=== PATIENT | female | born 1995 | race Caucasian/White ===

== ENCOUNTER 2017-01-12 21:46 | Emergency (ER) | payer BC ==
[~2017-01-12] VITALS: Ht 165.1 cm; Wt 95.8 kg
[~2017-01-12 21:46] MED LIST: BYSTOLIC5 MG PO; ESCITALOPRAM OX10 MG PO; LOESTRIN 241 TABLET; OMEPRAZOLE40 M1 PO
[2017-01-13 00:08] LABS: HEMATOCRIT 38.4 % (36.0-46.0); MCH 26.8 PG (29.0-34.0); MCV 83.7 FL (83-99); MEAN PLAT.VOLUME 9.3 uM^3 (9.5-12.4); PLATELET COUNT 309 K/uL (156-360); RBC DIS.WIDTH-CV 13.6 % (11.8-14.6); RBC DIS.WIDTH-SD 42.1 % (39-53); RED BLOOD COUNT 4.59 M/uL (3.80-5.20); WHITE BLOOD COUNT 8.2 K/uL (4.1-10.2)
[2017-01-13 00:21] LABS: CHLORIDE 106 mEq/L (99-109); POTASSIUM 3.8 mEq/L (3.7-5.4); SODIUM 142 mEq/L (136-147)
[2017-01-13 00:23] LABS: GLUCOSE 98 mg/dL (70-99)
[2017-01-13 00:25] LABS: ANION GAP 13 MEQ/L (2-14); TOTAL BILIRUBIN 0.4 mg/dL (0.0-1.0)
[2017-01-13 00:27] LABS: ALKALINE PHOSPHATASE 58 IU/L (3-129); GFR ESTIMATE (CALCULATED) > 59 mL/min/
[2017-01-13 00:28] LABS: UREA NITROGEN (BUN) 9 mg/dL (9-23)
[2017-01-13 00:30] LABS: ADD MIUA? YES; BILIRUBIN NEGATIVE; BLOOD NEGATIVE; COLOR AMBER ((YELLOW)); GLUCOSE (STRIP) NEGATIVE; KETONES 5; LEUKOCYTES TRACE; NITRITE NEGATIVE; PROTEIN (STRIP) 30; SPECIFIC GRAVITY 1.032 (1.000-1.030); UROBILINOGEN 0.2 MG/DL (0.2-1.0)
[2017-01-13 00:30] LABS: LIPASE 36 U/L (1.0-51.0)
[2017-01-13 00:40] LABS: QUANTITATIVE HCG < 4.0 MIU/ML
[2017-01-13 00:48] LABS: BACTERIA RARE /HPF; CALCIUM OXALATE CRYSTALS 1+ /HPF; EPITHELIAL CELLS 1+ /HPF; HYALINE CASTS 0-5 /LPF; MUCUS 2+ /LPF; RED BLOOD CELLS 0-5 /HPF (0-5); UCUL ADDED? NO; WHITE BLOOD CELLS 0-5 /HPF (0-5)
[2017-01-13 01:33] VITALS: BP 137/77
== END 2017-01-13 01:34 | disposition home or self-care (01) ==
LOC: EME 21:46
PROVIDERS: Physician Assistant
DX: R10.11 Right upper quadrant pain (principal); R14.0 Abdominal distension (gaseous); I10 Essential (primary) hypertension
CPT/HCPCS: 76705; 80053; 81003; 83690; 84702; 85027; 99281; 99284

== ENCOUNTER 2017-03-16 10:09 | Emergency (ER) | payer BC ==
[~2017-03-16] VITALS: Ht 167.6 cm; Wt 94.7 kg
[2017-03-16 11:07] LABS: HEMATOCRIT 35.6 % (36.0-46.0); MCH 28.2 PG (29.0-34.0); MCHC 33.7 G/DL (30.0-36.0); MCV 83.8 FL (83-99); MEAN PLAT.VOLUME 9.1 uM^3 (9.5-12.4); PLATELET COUNT 333 K/uL (156-360); RBC DIS.WIDTH-CV 13.3 % (11.8-14.6); RBC DIS.WIDTH-SD 40.9 % (39-53); RED BLOOD COUNT 4.25 M/uL (3.80-5.20); WHITE BLOOD COUNT 9.9 K/uL (4.1-10.2)
[2017-03-16] MEDS ORDERED: LABETALOL HCL100 MG PO (13:32)
[2017-03-16] MEDS ORDERED: ESTRACE0.5 MG PO (13:33)
[2017-03-16] MEDS ORDERED: CRINONE1.45 GM VG (13:34)
[2017-03-16 14:12] LABS: ADD MIUA? YES; BILIRUBIN NEGATIVE; BLOOD LARGE; COLOR YELLOW ((YELLOW)); GLUCOSE (STRIP) NEGATIVE; KETONES 80; LEUKOCYTES NEGATIVE; NITRITE NEGATIVE; PROTEIN (STRIP) NEGATIVE; SPECIFIC GRAVITY 1.013 (1.000-1.030); UROBILINOGEN 0.2 MG/DL (0.2-1.0)
[2017-03-16 14:21] LABS: BACTERIA NONE SEEN /HPF; EPITHELIAL CELLS 1+ /HPF; MUCUS TRACE /LPF; RED BLOOD CELLS TNTC /HPF (0-5); UCUL ADDED? NO; WHITE BLOOD CELLS 0-5 /HPF (0-5)
[2017-03-16 14:37] VITALS: BP 145/104
== END 2017-03-16 14:38 | disposition home or self-care (01) ==
LOC: EME 10:09 → EXP 10:09
DX: O20.8 Other hemorrhage in early pregnancy (principal); O34.81 Maternal care for other abnormalities of pelvic organs, first trimester; N83.201 Unspecified ovarian cyst, right side; O16.1 Unspecified maternal hypertension, first trimester; O99.281 Endocrine, nutritional and metabolic diseases complicating pregnancy, first trimester; E78.5 Hyperlipidemia, unspecified; O99.611 Diseases of the digestive system complicating pregnancy, first trimester; K21.9 Gastro-esophageal reflux disease without esophagitis; O99.341 Other mental disorders complicating pregnancy, first trimester; F32.9 Major depressive disorder, single episode, unspecified; F41.9 Anxiety disorder, unspecified; O36.8910 Maternal care for other specified fetal problems, first trimester, not applicable or unspecified; Z3A.09 9 weeks gestation of pregnancy
CPT/HCPCS: 76801; 81003; 84702; 85027; 99281; 99283

== ENCOUNTER 2017-06-03 05:17 | Emergency (ER) | payer OTHER, BC ==
[~2017-06-03] VITALS: Ht 165.1 cm; Wt 96.2 kg
[~2017-06-03 05:17] MED LIST changes: +CRINONE1.45 GM VG; +ESTRACE0.5 MG PO; +LABETALOL HCL100 MG PO
[2017-06-03 05:18] VITALS: BP 142/97
== END 2017-06-03 07:14 | disposition home or self-care (01) ==
LOC: EME 05:17
DX: O9A.212 Injury, poisoning and certain other consequences of external causes complicating pregnancy, second trimester (principal); S61.032A Puncture wound without foreign body of left thumb without damage to nail, initial encounter; W46.0XXA Contact with hypodermic needle, initial encounter; Y99.0 Civilian activity done for income or pay; Y92.239 Unspecified place in hospital as the place of occurrence of the external cause; Z3A.21 21 weeks gestation of pregnancy; O16.2 Unspecified maternal hypertension, second trimester; O99.282 Endocrine, nutritional and metabolic diseases complicating pregnancy, second trimester; E78.5 Hyperlipidemia, unspecified; Z91.040 Latex allergy status
CPT/HCPCS: 99281; 99283

== ENCOUNTER 2017-07-06 11:34 | Emergency (ER) | payer BC ==
[~2017-07-06] VITALS: Ht 167.6 cm; Wt 99.5 kg
[2017-07-06 12:24] LABS: EOSINOPHIL (%) 0.6 % (0-5); EOSINOPHIL COUNT 0.1 K/uL (0-0.3); HEMATOCRIT 34.5 % (36.0-46.0); IMMATURE GRANULOCYTE (%) 0.5 % (0.0-0.7); IMMATURE GRANULOCYTE COUNT 0.1 K/uL; INSTRUMENT ABS NEUTROPHIL CT 11.4 K/uL; LYMPHOCYTE COUNT 2.1 K/uL (1.0-2.8); MCH 28.9 PG (29.0-34.0); MCHC 33.6 G/DL (30.0-36.0); MCV 85.8 FL (83-99); MEAN PLAT.VOLUME 9.2 uM^3 (9.5-12.4); MONOCYTE (%) 4.6 % (3-12); MONOCYTE COUNT 0.7 K/uL (0-0.8); NEUTROPHIL (%) 79.7 % (45-76); NEUTROPHIL COUNT 11.4 K/uL (1.8-6.4); PLATELET COUNT 303 K/uL (156-360); RBC DIS.WIDTH-CV 13.2 % (11.8-14.6); RBC DIS.WIDTH-SD 41.4 % (39-53); RED BLOOD COUNT 4.02 M/uL (3.80-5.20); WHITE BLOOD COUNT 14.3 K/uL (4.1-10.2)
[2017-07-06 12:36] LABS: CHLORIDE 104 mEq/L (99-109); POTASSIUM 3.7 mEq/L (3.7-5.4); SODIUM 136 mEq/L (136-147)
[2017-07-06 12:39] LABS: GLUCOSE 98 mg/dL (70-99)
[2017-07-06 12:40] LABS: ANION GAP 12 MEQ/L (2-14)
[2017-07-06 12:41] LABS: TOTAL BILIRUBIN 0.3 mg/dL (0.0-1.0)
[2017-07-06 12:42] LABS: ALKALINE PHOSPHATASE 71 IU/L (3-129); GFR ESTIMATE (CALCULATED) > 59 mL/min/
[2017-07-06 12:43] LABS: UREA NITROGEN (BUN) 8 mg/dL (9-23)
[2017-07-06 12:51] LABS: QUANTITATIVE HCG 8150.1 MIU/ML
[2017-07-06 14:49] LABS: ADD MIUA? YES; BILIRUBIN NEGATIVE; BLOOD NEGATIVE; COLOR YELLOW ((YELLOW)); GLUCOSE (STRIP) NEGATIVE; KETONES 5; LEUKOCYTES NEGATIVE; NITRITE NEGATIVE; PROTEIN (STRIP) NEGATIVE; SPECIFIC GRAVITY 1.011 (1.000-1.030); UROBILINOGEN 0.2 MG/DL (0.2-1.0)
[2017-07-06 14:58] LABS: BACTERIA RARE /HPF; EPITHELIAL CELLS 1+ /HPF; HYALINE CASTS 0-5 /LPF; MUCUS TRACE /LPF; RED BLOOD CELLS 0-5 /HPF (0-5); WHITE BLOOD CELLS 0-5 /HPF (0-5)
[2017-07-06 15:15] VITALS: BP 111/68
== END 2017-07-06 15:23 | disposition home or self-care (01) ==
LOC: EME 11:34
PROVIDERS: Emergency Medicine
DX: O26.892 Other specified pregnancy related conditions, second trimester (principal); R42 Dizziness and giddiness; O10.912 Unspecified pre-existing hypertension complicating pregnancy, second trimester; R00.0 Tachycardia, unspecified; Z3A.26 26 weeks gestation of pregnancy
CPT/HCPCS: 80053; 81003; 84702; 85025; 93005; 99281; 99285

== ENCOUNTER 2017-08-29 14:32 | Outpatient (CLI) | payer BC ==
[2017-08-29 14:45] VITALS: BP 130/78
[2017-08-29 15:19] LABS: BASOPHIL (%) 0.3 % (0-1); EOSINOPHIL (%) 0.8 % (0-5); EOSINOPHIL COUNT 0.1 K/uL (0-0.3); HEMATOCRIT 33.7 % (36.0-46.0); HEMOGLOBIN 11.4 G/DL (11.9-15.5); IMMATURE GRANULOCYTE (%) 0.7 % (0.0-0.7); LYMPHOCYTE (%) 20.5 % (15-42); LYMPHOCYTE COUNT 2.1 K/uL (1.0-2.8); MCH 29.2 PG (29.0-34.0); MCHC 33.8 G/DL (30.0-36.0); MCV 86.2 FL (83-99); MONOCYTE (%) 8.9 % (3-12); MONOCYTE COUNT 0.9 K/uL (0-0.8); NEUTROPHIL (%) 68.8 % (45-76); PLATELET COUNT 269 K/uL (156-360); RBC DIS.WIDTH-SD 43.1 % (39-53); RED BLOOD COUNT 3.91 M/uL (3.80-5.20); WHITE BLOOD COUNT 10.2 K/uL (4.1-10.2)
[2017-08-29 15:20] VITALS: BP 130/68
[2017-08-29 15:37] LABS: ALBUMIN 3.5 G/DL (3.2-4.8); CHLORIDE 106 MEQ/L (99-109); POTASSIUM 3.7 MEQ/L (3.7-5.4); SODIUM 138 MEQ/L (136-147); TOTAL BILIRUBIN 0.2 MG/DL (0.0-1.0)
[2017-08-29 15:43] LABS: ALKALINE PHOSPHATASE 68 IU/L (3-129); ALT (GPT) 8 IU/L (3-49); AST (GOT) 9 IU/L (2-34); CREATININE 0.4 MG/DL (0.6-1.3); GFR ESTIMATE (CALCULATED) > 59 mL/min/; GLUCOSE 93 mg/dL (70-99); TOTAL PROTEIN 6.5 G/DL (6.4-8.3); UREA NITROGEN (BUN) 6 mg/dL (9-23); URIC ACID 3.9 mg/dL (3.1-9.2)
[2017-08-29 15:44] VITALS: BP 140/75
[2017-08-29] MEDS ORDERED: OMEPRAZOLE40 M1 PO (16:01)
[2017-08-29 17:00] LABS: UR CREATININE CONCENTRATION 173.1 MG/DL
== END 2017-08-29 17:25 | disposition home or self-care (01) ==
LOC: LDRP-OP 14:32 → 2WEST 14:34 → LDRP-OP 11-11 14:40
PROVIDERS: Nurse Practitioner
DX: O10.913 Unspecified pre-existing hypertension complicating pregnancy, third trimester (principal); Z3A.00 Weeks of gestation of pregnancy not specified
CPT/HCPCS: 59025; 80053; 82570; 84156; 84550; 85025; G0378

== ENCOUNTER 2017-08-31 15:41 | Outpatient (CLI) | payer BC ==
[2017-08-31] VITALS (9 sets, daily range): BP systolic 138–158; BP diastolic 78–90
[2017-08-31 16:52] LABS: BASOPHIL (%) 0.2 % (0-1); EOSINOPHIL (%) 0.6 % (0-5); EOSINOPHIL COUNT 0.1 K/uL (0-0.3); HEMATOCRIT 33.6 % (36.0-46.0); HEMOGLOBIN 11.2 G/DL (11.9-15.5); IMMATURE GRANULOCYTE (%) 0.7 % (0.0-0.7); LYMPHOCYTE (%) 17.9 % (15-42); LYMPHOCYTE COUNT 2.2 K/uL (1.0-2.8); MCH 28.9 PG (29.0-34.0); MCHC 33.3 G/DL (30.0-36.0); MCV 86.8 FL (83-99); MONOCYTE (%) 6.3 % (3-12); MONOCYTE COUNT 0.8 K/uL (0-0.8); NEUTROPHIL (%) 74.3 % (45-76); PLATELET COUNT 262 K/uL (156-360); RBC DIS.WIDTH-SD 43.5 % (39-53); RED BLOOD COUNT 3.87 M/uL (3.80-5.20); WHITE BLOOD COUNT 12.1 K/uL (4.1-10.2)
[2017-08-31 17:04] LABS: ALBUMIN 3.5 G/DL (3.2-4.8); CHLORIDE 106 MEQ/L (99-109); POTASSIUM 3.5 MEQ/L (3.7-5.4); SODIUM 137 MEQ/L (136-147); TOTAL BILIRUBIN 0.2 MG/DL (0.0-1.0)
[2017-08-31 17:09] LABS: UR CREATININE CONCENTRATION 109.6 MG/DL
[2017-08-31 17:10] LABS: ALKALINE PHOSPHATASE 70 IU/L (3-129); ALT (GPT) 10 IU/L (3-49); AST (GOT) 10 IU/L (2-34); CREATININE 0.6 MG/DL (0.6-1.3); GFR ESTIMATE (CALCULATED) > 59 mL/min/; GLUCOSE 138 mg/dL (70-99); TOTAL PROTEIN 6.4 G/DL (6.4-8.3); UREA NITROGEN (BUN) 8 mg/dL (9-23)
== END 2017-08-31 18:20 | disposition home or self-care (01) ==
LOC: LDRP-OP 15:41 → 2WEST 15:43 → LDRP-OP 11-11 17:52
PROVIDERS: Midwife
DX: O13.3 Gestational [pregnancy-induced] hypertension without significant proteinuria, third trimester (principal); Z3A.33 33 weeks gestation of pregnancy
CPT/HCPCS: 59025; 80053; 82570; 84156; 85025; G0378

== ENCOUNTER 2017-09-07 14:08 | Inpatient (IN) | payer BC ==
[~2017-09-07] VITALS: Ht 165.1 cm; Wt 102.0 kg
[2017-09-07 14:28] VITALS: BP 153/90
[2017-09-07 14:43] LABS: BASOPHIL (%) 0.2 % (0-1); EOSINOPHIL (%) 0.5 % (0-5); EOSINOPHIL COUNT 0.1 K/uL (0-0.3); HEMATOCRIT 34.6 % (36.0-46.0); HEMOGLOBIN 11.7 G/DL (11.9-15.5); IMMATURE GRANULOCYTE (%) 0.6 % (0.0-0.7); LYMPHOCYTE COUNT 1.9 K/uL (1.0-2.8); MCH 29.2 PG (29.0-34.0); MCHC 33.8 G/DL (30.0-36.0); MCV 86.3 FL (83-99); MONOCYTE (%) 5.3 % (3-12); MONOCYTE COUNT 0.7 K/uL (0-0.8); NEUTROPHIL (%) 78.4 % (45-76); NEUTROPHIL COUNT 9.7 K/uL (1.8-6.4); PLATELET COUNT 252 K/uL (156-360); RBC DIS.WIDTH-CV 13.9 % (11.8-14.6); RBC DIS.WIDTH-SD 43.4 % (39-53); RED BLOOD COUNT 4.01 M/uL (3.80-5.20); WHITE BLOOD COUNT 12.4 K/uL (4.1-10.2)
[2017-09-07 14:54] LABS: ALBUMIN 3.6 G/DL (3.2-4.8); CHLORIDE 105 MEQ/L (99-109); POTASSIUM 3.4 MEQ/L (3.7-5.4); SODIUM 137 MEQ/L (136-147)
[2017-09-07 14:59] VITALS: BP 121/81
[2017-09-07 15:00] LABS: ALKALINE PHOSPHATASE 74 IU/L (3-129); ALT (GPT) 9 IU/L (3-49); AST (GOT) 9 IU/L (2-34); CREATININE 0.6 MG/DL (0.6-1.3); GFR ESTIMATE (CALCULATED) > 59 mL/min/; GLUCOSE 134 mg/dL (70-99); TOTAL PROTEIN 6.6 G/DL (6.4-8.3); UREA NITROGEN (BUN) 9 mg/dL (9-23)
[2017-09-07 15:13] LABS: TOTAL BILIRUBIN 0.3 MG/DL (0.0-1.0)
[2017-09-07 16:09] LABS: UR CREATININE CONCENTRATION 218.2 MG/DL
[2017-09-07 16:45] VITALS: BP 134/78
[2017-09-07 19:40] VITALS: BP 146/86
[2017-09-08 07:00] VITALS: BP 136/84
[2017-09-08 12:03] VITALS: BP 133/66
[2017-09-08 15:16] VITALS: BP 119/61
[2017-09-09] VITALS (7 sets, daily range): BP systolic 115–131; BP diastolic 58–78
[2017-09-09 09:22] LABS: BASE EXCESS -2.9 mEq/L (-3 to +3); BICARBONATE 22.6 mEq/L (22-26); CARBOXY HGB 1.3 % (0-5); METHEMOGLOBIN 1.8 % (0-1.5); PCO2 41 mm Hg (35-45); PO2 33 mm Hg (80-100); pH 7.35 (7.35-7.45)
[2017-09-09 09:23] LABS: COMMENTS - BLOOD GASES COL BY OR; SITE CORD BLOOD
[2017-09-10 07:11] VITALS: BP 119/62
[2017-09-10 07:25] LABS: BASOPHIL (%) 0.2 % (0-1); EOSINOPHIL (%) 0.1 % (0-5); HEMATOCRIT 24.8 % (36.0-46.0); IMMATURE GRANULOCYTE (%) 0.8 % (0.0-0.7); LYMPHOCYTE (%) 19.5 % (15-42); LYMPHOCYTE COUNT 2.6 K/uL (1.0-2.8); MCH 29.1 PG (29.0-34.0); MCHC 33.1 G/DL (30.0-36.0); MCV 87.9 FL (83-99); MONOCYTE (%) 9.1 % (3-12); MONOCYTE COUNT 1.2 K/uL (0-0.8); NEUTROPHIL (%) 70.3 % (45-76); NEUTROPHIL COUNT 9.3 K/uL (1.8-6.4); PLATELET COUNT 205 K/uL (156-360); RBC DIS.WIDTH-CV 14.3 % (11.8-14.6); RBC DIS.WIDTH-SD 45.1 % (39-53); WHITE BLOOD COUNT 13.2 K/uL (4.1-10.2)
[2017-09-10 08:15] LABS: HEMOGLOBIN 8.2 G/DL (11.9-15.5); RED BLOOD COUNT 2.82 M/uL (3.80-5.20)
[2017-09-10] MEDS ORDERED: MOTRIN800 MG PO (10:27)
[2017-09-10] MEDS ORDERED: PERCOCET 5/31 TABLET PO (10:27)
[2017-09-10] MEDS ORDERED: FEOSOL325 MG PO (10:27)
[2017-09-10 11:18] VITALS: BP 110/66
[2017-09-10 15:56] VITALS: BP 124/65
[2017-09-10 19:40] VITALS: BP 144/82
[2017-09-10 22:44] VITALS: BP 141/79
[2017-09-11 03:30] VITALS: BP 132/73
[2017-09-11 07:30] VITALS: BP 138/78
[2017-09-11 11:13] VITALS: BP 121/66
[2017-09-11 13:02] VITALS: BP 116/58
[2017-09-11 19:45] VITALS: BP 150/89
[2017-09-11 22:30] VITALS: BP 140/78
[2017-09-12 03:30] VITALS: BP 130/80
[2017-09-12 09:31] VITALS: BP 128/73
[2017-09-12 09:33] VITALS: BP 123/72
== END 2017-09-12 10:20 | disposition home or self-care (01) | DRG 765 ==
LOC: LDRP-OP 14:08 → 2WEST 14:10 → LDRP-OP 11-11 20:35
PROVIDERS: Obstetrics & Gynecology
PROC: 10D00Z0 Extraction of Products of Conception, High, Open Approach (ICD-10-PCS; principal; 2017-09-09)
DX: O11.4 Pre-existing hypertension with pre-eclampsia, complicating childbirth (principal); O60.14X0 Preterm labor third trimester with preterm delivery third trimester, not applicable or unspecified; D62 Acute posthemorrhagic anemia; O76 Abnormality in fetal heart rate and rhythm complicating labor and delivery; O32.2XX0 Maternal care for transverse and oblique lie, not applicable or unspecified; O99.824 Streptococcus B carrier state complicating childbirth; O34.83 Maternal care for other abnormalities of pelvic organs, third trimester; N83.291 Other ovarian cyst, right side; Z3A.35 35 weeks gestation of pregnancy; Z37.0 Single live birth
CPT/HCPCS: 36600; 76818; 80053; 82570; 82803; 84156; 85025; 86850; 86900; 86901; 88307; G0378; J0690; J0702; J2274; J2405; J2765; J3010; J7120